=== PATIENT | female | born 1950 ===

== ENCOUNTER 2017-07-18 19:07 | Emergency (ER) | payer BC ==
[2017-07-18 19:41] LABS: #Eosinphils 0.2 thou/uL (0.0-0.7); #Monocytes 0.5 thou/uL (0.11-0.59); #Neutrophils 4.3 thou/uL (1.40-6.50); %Basophils 0.6 % (0.0-1.0); %Lymphocytes 37.7 % (21.0-51.0); %Monocytes 6.5 % (0.0-10.0); Hematocrit 43.9 % (36.0-47.0); Mean Platelet Volume 7.4 fL (7.4-10.4); Red Blood Cell (RBC) Count 4.52 mill/uL (4.20-5.40)
[2017-07-18 20:03] LABS: ALT (SGPT) 21 U/L (8-55); AST (SGOT) 20 U/L (5-34); Alkaline Phosphatase 72 U/L (40-150); Anion Gap 13 mmol/L (10-20); BUN (Urea Nitrogen) 25 mg/dL (9.8-20.1); Bilirubin, Total 0.3 mg/dL (0.2-1.2); CK (CPK) 83 U/L (29-168); Calc. Creatinine Clearance 0 mL/min (70-130); Carbon Dioxide 27 mmol/L (23-31); Chloride 102 mmol/L (98-107); Estimated GFR-MDRD 63; Lipase 27 U/L (8-78); Protein, Total 8.4 g/dL (6.0-8.3)
[2017-07-18 20:08] LABS: Troponin I Less than 0.010 ng/mL (< 0.028)
--- NOTE | 2017-07-18 21:32 | RAD ---
PORTABLE CHEST: 07/18/17 HISTORY: Heart palpitations. The heart size and mediastinum are within normal limits. The lungs are clear of infiltrates. No sign ificant bony findings. IMPRESSION: No active intrathoracic disease. POS: [id number]
== END 2017-07-19 04:22 | disposition home or self-care (01) ==
LOC: ERS 19:07
DX: R00.2 Palpitations (principal); K21.9 Gastro-esophageal reflux disease without esophagitis; J45.909 Unspecified asthma, uncomplicated; E78.5 Hyperlipidemia, unspecified; F41.9 Anxiety disorder, unspecified; Z87.891 Personal history of nicotine dependence
CPT/HCPCS: 36415; 71010; 80053; 82550; 82553; 83690; 84484; 85025; 93005